=== PATIENT | female | born 1990 ===

== ENCOUNTER 2021-04-03 07:31 | Emergency (ER) | payer OTHER ==
[~2021-04-03] VITALS: Ht 165.1 cm; Wt 72.6 kg
[2021-04-03 07:38] VITALS: BP 140/97
[2021-04-03 08:29] LABS: Urine Bacteria FEW /hpf (None Seen); Urine Blood 2+ /uL (Negative); Urine Specific Gravity 1.009 (1.001-1.035); Urine WBC 1 /hpf (0 - 5)
== END 2021-04-03 09:32 | disposition home or self-care (01) ==
LOC: ER 07:31
DX: O20.0 Threatened abortion (principal); Z3A.20 20 weeks gestation of pregnancy
CPT/HCPCS: 76805; 81001